=== PATIENT | female | born 1945 | race Caucasian/White ===

== ENCOUNTER → 2017-10-25 | Outpatient (CLI) | payer MEDICARE, BC | LOC: COL.PUL 12:32 | DX: R06.02 Shortness of breath (principal); R07.89 Other chest pain ==

== ENCOUNTER → 2018-04-21 | Outpatient (CLI) | payer MEDICARE, BC | LOC: MC.RAD 13:51 | DX: Z12.31 Encounter for screening mammogram for malignant neoplasm of breast (principal) ==

== ENCOUNTER 2018-09-11 09:59 | Outpatient (RCR) | payer MEDICARE, BC | END 2018-09-15 13:53 | disposition home or self-care (01) | LOC: MKS.ESL.PT 09:59 | DX: Z01.818 Encounter for other preprocedural examination (principal); M17.11 Unilateral primary osteoarthritis, right knee | CPT/HCPCS: G8978-GP; G8979-GP; G8980-GP ==

== ENCOUNTER → 2018-11-19 | Outpatient (CLI) | payer MEDICARE, BC | LOC: COL.PUL 12:56 | DX: R06.02 Shortness of breath (principal) | CPT/HCPCS: J7674 ==

== ENCOUNTER 2019-01-15 09:30 | Outpatient (RCR) | payer MEDICARE, BC | END 2019-01-15 13:55 | disposition home or self-care (01) | LOC: MKS.ESL.PT 09:30 | DX: Z47.1 Aftercare following joint replacement surgery (principal); Z96.651 Presence of right artificial knee joint ==

== ENCOUNTER 2019-02-26 02:47 | Emergency (ER) | payer MEDICARE, BC ==
[~2019-02-26] VITALS: Ht 170.2 cm; Wt 72.7 kg
[2019-02-26 02:49] VITALS: TEMP 96.9
[2019-02-26] MEDS ORDERED: OMEGA-3 1000 MG1 CAP PO (03:11)
[2019-02-26] MEDS ORDERED: BONE BUILDER (03:11)
[2019-02-26] MEDS ORDERED: VITAMIN D31000 IU PO (03:11)
[2019-02-26 03:16] LABS: BASO # 0.1 (0.0-0.2); BASO % 0.4 % (0.0-2.0); EOS # 0.1 (0.0-0.7); EOS % 0.7 % (0-4.0); GRAN % 82.3 % (42.2-75.2); HEMATOCRIT 44.1 % (37.0-47.0); HEMOGLOBIN 14.4 g/dl (12.5-16.0); LYMPH # 1.6 (1.2-3.4); LYMPH % 12.2 % (20.0-51.0); MEAN CELL VOLUME 92 fl (80.0-100.0); MEAN CORPUSCULAR HEMOGLOBIN 30 pg (27.0-31.0); MEAN CORPUSCULAR HGB CONC 33 g/dl (33.0-37.0); MEAN PLATELET VOLUME 9.5 fl (7.4-10.4); MONO # 0.5 (0.1-0.6); PLATELET COUNT 229 K/mm3 (130-400); RED BLOOD COUNT 4.81 M/mm3 (4.10-5.30); REDCELL DISTRIBUTION WIDTH-CV 13.1 % (11.5-14.5)
[2019-02-26 03:21] LABS: ALBUMIN 4.4 gm/dL (3.5-5.0); BILIRUBIN,TOTAL 0.5 mg/dL (0.0-1.0); CALCIUM 10.1 mg/dL (8.4-10.2); CREATININE, serum 1.19 (0.52-1.25); POTASSIUM 3.8 mmol/L (3.4-5.0); TOTAL PROTEIN 7.7 gm/dL (6.4-8.2)
[2019-02-26 03:46] LABS: COLLECTION METHOD CLEAN CATCH
[2019-02-26 03:53] LABS: PH 5 (5-8); SQUAMOUS EPITHELIAL None Seen /hpf; URINE APPEARANCE Clear; URINE BACTERIA None Seen /hpf; URINE BILIRUBIN Negative (NEGATIVE); URINE BLOOD 1+ (NEGATIVE); URINE COLOR Yellow; URINE GLUCOSE Negative (NEGATIVE); URINE KETONE Trace (NEGATIVE); URINE LEUKOCYTE ESTERASE Negative (NEGATIVE); URINE NITRATE Negative (NEGATIVE); URINE PROTEIN(semi-quant) Negative (NEGATIVE); URINE UROBILINOGEN Negative (NEGATIVE)
[2019-02-26] MEDS ORDERED: FLOMAX 0.40.4 MG/CAP PO (06:03)
[2019-02-26] MEDS ORDERED: ZOFRAN 4MG T4 MG/TAB PO (06:03)
[2019-02-26] MEDS ORDERED: NORCO 325 MG-51 TAB PO (06:03)
[2019-02-26 06:08] VITALS: BP 128/70; PULSE 83
[2019-02-27] VITALS (567 sets, daily range): O2SAT 83–100
[2019-02-27] MEDS ORDERED: MELAT3MGTAB PO (11:56)
[2019-02-28] VITALS (627 sets, daily range): O2SAT 73–100
== END 2019-02-26 06:15 | disposition home or self-care (01) ==
LOC: COL.ER 02:47
PROVIDERS: Emergency Medicine
DX: N20.2 Calculus of kidney with calculus of ureter (principal); N23 Unspecified renal colic
CPT/HCPCS: J0780; J1885; J2270; J2405; J7030; Q9967

== ENCOUNTER 2019-02-27 05:15 | Inpatient (IN) | payer MEDICARE, BC ==
[2019-02-27] VITALS (12 sets, daily range): BP systolic 94–123; BP diastolic 60–76; PULSE 76–97; TEMP 97.6–98.2
[~2019-02-27] VITALS: Ht 170.2 cm; Wt 80.8 kg
[~2019-02-27 05:15] MED LIST: BONE BUILDER; FLOMAX 0.40.4 MG/CAP PO; NORCO 325 MG-51 TAB PO; OMEGA-3 1000 MG1 CAP PO; VITAMIN D31000 IU PO; ZOFRAN 4MG T4 MG/TAB PO
[2019-02-27 05:50] LABS: MEAN CELL VOLUME 88 fl (80.0-100.0); MEAN CORPUSCULAR HGB CONC 34 g/dl (33.0-37.0); MEAN PLATELET VOLUME 9.7 fl (7.4-10.4); RED BLOOD COUNT 4.09 M/mm3 (4.10-5.30); REDCELL DISTRIBUTION WIDTH-CV 13.7 % (11.5-14.5)
[2019-02-27 05:55] LABS: HEMATOCRIT 35.9 % (37.0-47.0); HEMOGLOBIN 12.2 g/dl (12.5-16.0); MEAN CORPUSCULAR HEMOGLOBIN 30 pg (27.0-31.0); PLATELET COUNT 112 K/mm3 (130-400)
[2019-02-27 06:08] LABS: COLLECTION METHOD CLEAN CATCH
[2019-02-27 06:11] LABS: ALBUMIN 3.4 gm/dL (3.5-5.0); BILIRUBIN,TOTAL 0.9 mg/dL (0.0-1.0); CALCIUM 8.5 mg/dL (8.4-10.2); CREATININE, serum 1.84 (0.52-1.25); POTASSIUM 3.8 mmol/L (3.4-5.0); TOTAL PROTEIN 6.2 gm/dL (6.4-8.2)
[2019-02-27 06:12] LABS: INR 1.4 (0.8-3.0); PROTHROMBIN TIME 16.7 SECONDS (9.7-12.8)
[2019-02-27 06:15] LABS: URINE COLOR Yellow
[2019-02-27 06:15] LABS: PARTIAL THROMBOPLASTIN TIME 28.9 SECONDS (26.0-37.0)
[2019-02-27 06:16] LABS: PH 5 (5-8); URINE APPEARANCE Hazy; URINE BILIRUBIN Negative (NEGATIVE); URINE GLUCOSE Negative (NEGATIVE); URINE KETONE Negative (NEGATIVE); URINE PROTEIN(semi-quant) 2+ (NEGATIVE); URINE UROBILINOGEN Negative (NEGATIVE)
[2019-02-27 06:17] LABS: URINE BLOOD 3+ (NEGATIVE); URINE NITRATE Negative (NEGATIVE)
[2019-02-27 06:18] LABS: URINE LEUKOCYTE ESTERASE Trace (NEGATIVE)
[2019-02-27 06:24] LABS: BAND 46 % (0-10); LYMPHOCYTE 2 % (20.0-51.0); METAMYELOCYTE 1 % (0-0); NEUTROPHILS 51 % (42.0-75.2); PLATELET ESTIMATE DECREASED (NORMAL)
[2019-02-27 06:33] LABS: TROPONIN-I 2.2 ng/mL (0.000-0.035)
[2019-02-27] MEDS ORDERED: MELAT3MGTAB PO (11:56)
[2019-02-28] VITALS (7 sets, daily range): BP systolic 119–147; BP diastolic 59–83; PULSE 72–97; TEMP 98.2–99.2
[2019-02-28 05:17] LABS: HEMOGLOBIN 11.7 g/dl (12.5-16.0); MEAN CELL VOLUME 92 fl (80.0-100.0); MEAN CORPUSCULAR HEMOGLOBIN 30 pg (27.0-31.0); MEAN CORPUSCULAR HGB CONC 33 g/dl (33.0-37.0); MEAN PLATELET VOLUME 11.3 fl (7.4-10.4); PLATELET COUNT 74 K/mm3 (130-400); RED BLOOD COUNT 3.88 M/mm3 (4.10-5.30); REDCELL DISTRIBUTION WIDTH-CV 14.6 % (11.5-14.5)
[2019-02-28 05:21] LABS: HEMATOCRIT 35.7 % (37.0-47.0); INR 1.3 (0.8-3.0); PROTHROMBIN TIME 14.7 SECONDS (9.7-12.8)
[2019-02-28 05:29] LABS: BAND 49 % (0-10); HYPOCHROMIA 1+; LYMPHOCYTE 5 % (20.0-51.0); METAMYELOCYTE 1 % (0-0); NEUTROPHILS 45 % (42.0-75.2); PLATELET ESTIMATE DECREASED (NORMAL)
[2019-02-28 05:32] LABS: ALBUMIN 2.7 gm/dL (3.5-5.0); BILIRUBIN,TOTAL 0.5 mg/dL (0.0-1.0); CALCIUM 7.9 mg/dL (8.4-10.2); CREATININE, serum 1.22 (0.52-1.25); POTASSIUM 3.8 mmol/L (3.4-5.0); TOTAL PROTEIN 5.4 gm/dL (6.4-8.2)
[2019-03-01 03:26] VITALS: BP 144/75; PULSE 93; TEMP 98
[2019-03-01 06:21] LABS: HEMOGLOBIN 11.3 g/dl (12.5-16.0); INR 1.1 (0.8-3.0); MEAN CELL VOLUME 90 fl (80.0-100.0); MEAN CORPUSCULAR HEMOGLOBIN 30 pg (27.0-31.0); MEAN CORPUSCULAR HGB CONC 33 g/dl (33.0-37.0); PLATELET COUNT 96 K/mm3 (130-400); PROTHROMBIN TIME 12.5 SECONDS (9.7-12.8); RED BLOOD COUNT 3.76 M/mm3 (4.10-5.30)
[2019-03-01 06:23] LABS: HEMATOCRIT 33.8 % (37.0-47.0)
[2019-03-01 06:35] LABS: ALBUMIN 2.5 gm/dL (3.5-5.0); BILIRUBIN,TOTAL 0.9 mg/dL (0.0-1.0); CREATININE, serum 0.88 (0.52-1.25); POTASSIUM 3.6 mmol/L (3.4-5.0); TOTAL PROTEIN 5.1 gm/dL (6.4-8.2)
[2019-03-01 07:09] LABS: BAND 34 % (0-10); EOSINOPHIL 1 % (0-4); LYMPHOCYTE 10 % (20.0-51.0); NEUTROPHILS 54 % (42.0-75.2)
[2019-03-01 07:10] LABS: PLATELET ESTIMATE NORMAL (NORMAL)
[2019-03-01 07:28] VITALS: BP 136/62; PULSE 92; TEMP 98.1
[2019-03-01 11:53] VITALS: BP 146/80; PULSE 78; TEMP 97.9
[2019-03-01 16:26] VITALS: BP 133/66; PULSE 96; TEMP 98.1
[2019-03-01 20:16] VITALS: BP 133/56; PULSE 92; TEMP 98.3
[2019-03-01 23:03] VITALS: BP 147/75; PULSE 95; TEMP 98.7
[2019-03-02] VITALS (7 sets, daily range): BP systolic 131–155; BP diastolic 52–76; PULSE 79–90; TEMP 97.5–98.4
[2019-03-02 06:44] LABS: BASO # 0.1 (0.0-0.2); BASO % 0.7 % (0.0-2.0); EOS # 0.2 (0.0-0.7); EOS % 1.6 % (0-4.0); GRAN # 7.7 (1.4-6.5); GRAN % 75.5 % (42.2-75.2); HEMOGLOBIN 11.3 g/dl (12.5-16.0); LYMPH # 1.4 (1.2-3.4); MEAN CELL VOLUME 88 fl (80.0-100.0); MEAN CORPUSCULAR HEMOGLOBIN 30 pg (27.0-31.0); MEAN CORPUSCULAR HGB CONC 34 g/dl (33.0-37.0); MEAN PLATELET VOLUME 10.4 fl (7.4-10.4); MONO # 0.7 (0.1-0.6); MONO % 7.2 % (1.7-9.3); PLATELET COUNT 125 K/mm3 (130-400); RED BLOOD COUNT 3.83 M/mm3 (4.10-5.30); REDCELL DISTRIBUTION WIDTH-CV 13.9 % (11.5-14.5)
[2019-03-02 06:46] LABS: INR 1.1 (0.8-3.0); PROTHROMBIN TIME 12.3 SECONDS (9.7-12.8)
[2019-03-02 06:51] LABS: HEMATOCRIT 33.7 % (37.0-47.0)
[2019-03-02 06:52] LABS: ALBUMIN 2.8 gm/dL (3.5-5.0); BILIRUBIN,TOTAL 0.9 mg/dL (0.0-1.0); CALCIUM 8.4 mg/dL (8.4-10.2); CREATININE, serum 0.83 (0.52-1.25); POTASSIUM 3.1 mmol/L (3.4-5.0); TOTAL PROTEIN 5.5 gm/dL (6.4-8.2)
[2019-03-03 04:00] VITALS: BP 149/74; PULSE 85; TEMP 98.1
[2019-03-03 07:59] LABS: HEMOGLOBIN 12.1 g/dl (12.5-16.0); MEAN CELL VOLUME 89 fl (80.0-100.0); MEAN CORPUSCULAR HEMOGLOBIN 30 pg (27.0-31.0); MEAN CORPUSCULAR HGB CONC 34 g/dl (33.0-37.0); MEAN PLATELET VOLUME 10.2 fl (7.4-10.4); PLATELET COUNT 148 K/mm3 (130-400); RED BLOOD COUNT 4.08 M/mm3 (4.10-5.30); REDCELL DISTRIBUTION WIDTH-CV 13.9 % (11.5-14.5)
[2019-03-03 08:05] LABS: HEMATOCRIT 36.1 % (37.0-47.0)
[2019-03-03 08:14] LABS: ALBUMIN 3.1 gm/dL (3.5-5.0); CALCIUM 8.8 mg/dL (8.4-10.2); CREATININE, serum 0.85 (0.52-1.25); MAGNESIUM 1.7 mg/dL (1.6-2.3); POTASSIUM 3.6 mmol/L (3.4-5.0)
[2019-03-03 08:50] VITALS: BP 116/71; PULSE 96; TEMP 98.7
[2019-03-03] MEDS ORDERED: OMNICEF 300MG300 MG PO (09:26)
[2019-03-03] MEDS ORDERED: PROAIR HFA0.09 MG/AC IH (09:27)
[2019-03-03] MEDS ORDERED: ASPIRIN 81M81 MG/TA2 PO (09:32)
[2019-03-03 09:55] LABS: BAND 16 % (0-10); LYMPHOCYTE 20 % (20.0-51.0); METAMYELOCYTE 1 % (0-0); NEUTROPHILS 53 % (42.0-75.2); PLATELET ESTIMATE NORMAL (NORMAL)
== END 2019-03-03 11:28 | disposition home or self-care (01) | DRG 853 ==
LOC: COL.ER 05:15 → INPTSU 06:32 → ICU 11:05 → SURG 02-28 11:35
PROVIDERS: Emergency Medicine; Internal Medicine; ADMIT Urology
PROC: 0TC78ZZ Extirpation of Matter from Left Ureter, Via Natural or Artificial Opening Endoscopic (ICD-10-PCS; principal; 2019-02-27 07:00)
PROC: 0T7B8DZ Dilation of Bladder with Intraluminal Device, Via Natural or Artificial Opening Endoscopic (ICD-10-PCS; 2019-02-27 07:00)
DX: A41.9 Sepsis, unspecified organism (principal); R65.21 Severe sepsis with septic shock; I21.A1 Myocardial infarction type 2; N17.9 Acute kidney failure, unspecified; N20.1 Calculus of ureter; N12 Tubulo-interstitial nephritis, not specified as acute or chronic; J90 Pleural effusion, not elsewhere classified; S60.512A Abrasion of left hand, initial encounter; B96.20 Unspecified Escherichia coli [E. coli] as the cause of diseases classified elsewhere; W19.XXXA Unspecified fall, initial encounter; D69.6 Thrombocytopenia, unspecified; Z96.651 Presence of right artificial knee joint; R74.0 Nonspecific elevation of levels of transaminase and lactic acid dehydrogenase [LDH]; Y92.009 Unspecified place in unspecified non-institutional (private) residence as the place of occurrence of the external cause
CPT/HCPCS: 99232-AI; 99233-AI; 99239; A4216; A9284; C1769; C2617; J0690; J0696; J1100; J1650; J2310; J2370; J2405; J2543; J2704; J3010; J7030; J7040; J7042; J7120; Q9967

== ENCOUNTER 2019-03-13 05:41 | Day surgery (SDC) | payer MEDICARE, BC ==
[~2019-03-13] VITALS: Ht 170.2 cm; Wt 70.8 kg
[~2019-03-13 05:41] MED LIST changes: +ASPIRIN 81M81 MG/TA2 PO; +MELAT3MGTAB PO; +OMNICEF 300MG300 MG PO; +PROAIR HFA0.09 MG/AC IH
[2019-03-13 06:16] VITALS: BP 123/68; PULSE 73; TEMP 98.3
[2019-03-13] MEDS ORDERED: PROAIR HFA0.09 MG/AC IH (07:08)
[2019-03-13] MEDS ORDERED: ASPIRIN 81M81 MG/TA2 PO (07:09)
[2019-03-13] MEDS ORDERED: OMNICEF 300MG300 MG PO (07:11)
[2019-03-13] MEDS ORDERED: PROBIOTIC FORMU1 CAP PO (07:17)
[2019-03-13] MEDS ORDERED: [UNRECOGNIZED DRUG - OTHER] PO (07:19)
[2019-03-13 08:25] VITALS: BP 117/57; PULSE 70; TEMP 97.1
[2019-03-13 08:40] VITALS: BP 115/71; PULSE 71
[2019-03-13 08:55] VITALS: BP 135/59; PULSE 77
[2019-03-13 09:10] VITALS: BP 106/54; PULSE 70
--- NOTE | 2019-03-13 10:25 | NUR ---
0825- PT BACK FROM PACU, IS ALERT AND ORIENTATED, DENIES PAIN AND DENIES NAUSEA/VOMITING. IS PRESENT WITH HER. OFFERED HER SOMETHING TO EAT, STATED, 'TOAST WITH BUTTER AND ORANGE JUICE SOUNDS GOOD.' FOOD GIVEN TO HER. WILL CONT TO MONITOR HER PROGRESS
--- NOTE | 2019-03-13 10:31 | NUR ---
0840--PT ATE 2 PIECES OF TOAST WITH BUTTER AND DRINKING OJ. PT DENIES PAIN OR NAUSEA/VOMITING WITH EATING. PT SITTING UP, TAKING WITH , DENIES ANY NEEDS OR C/ AT THIS TIME. WILL CONT TO MONITOR
--- NOTE | 2019-03-13 10:36 | NUR ---
0855- PT UP TO VOID, WALKED WITH THIS NURSE TO THE BATHROOM WITHOUT DIFFICULTY. PT VOIDED WITHOUT DIFFICULTY, URINE WAS LT YELLOW WITH RED STINGE SPOT NOTED. PT DENIED PAIN OR BURNING. PT CONTINUES TO DENY PAIN OR NAUSEA OR VOMITING. GETTING DC PAPERS TOGETHER, WILL CON TO MONITOR PT
--- NOTE | 2019-03-13 10:41 | NUR ---
0910--PT UP AND DRESSED AND READY TO LEAVE. PRESENT. IV FLUIDS DC'D AND NEEDLE DISCONTINUED. PT TOLERATED WELL. PT CONTINUES TO DENY PAIN, DENIES N/V. TOOK PATIENT BY W/C OUT TO FAMILY VEHICLE.
--- NOTE | 2019-03-13 10:49 | NUR ---
0910-- PRINTED DC INSTRUCTIONS FOR PT RELATED TO CYSTOSCOPY AND GENERAL ANESTHESIA. READ THRU INSTRUCTION WITH PT AND DISMISSAL INSTRUCTIONS SIGNED, THIS NOTED WITH STANDING BY ERICKAN
== END 2019-03-13 09:30 | disposition home or self-care (01) ==
LOC: SDCO 05:41
DX: N20.1 Calculus of ureter (principal); Z79.82 Long term (current) use of aspirin; Z82.49 Family history of ischemic heart disease and other diseases of the circulatory system; Z96.651 Presence of right artificial knee joint
CPT/HCPCS: J0690; J2405; J2704; J3010; J7120

== ENCOUNTER → 2019-05-27 | Outpatient (CLI) | payer MEDICARE, BC ==
[~2019-05-27] MED LIST changes: +PROBIOTIC FORMU1 CAP PO; +[UNRECOGNIZED DRUG - OTHER] PO
== END ==
LOC: COL.RAD 08:46
DX: Z12.11 Encounter for screening for malignant neoplasm of colon (principal)

== ENCOUNTER → 2019-05-29 | Outpatient (CLI) | payer MEDICARE, BC | LOC: MC.RAD 13:45 | DX: Z12.31 Encounter for screening mammogram for malignant neoplasm of breast (principal) ==

== ENCOUNTER → 2020-05-31 | Outpatient (CLI) | payer MEDICARE, OTHER | LOC: MC.RAD 09:56 | DX: Z12.31 Encounter for screening mammogram for malignant neoplasm of breast (principal) ==

== ENCOUNTER → 2021-06-30 | Outpatient (CLI) | payer MEDICARE, OTHER | LOC: MC.RAD 10:36 | DX: Z12.31 Encounter for screening mammogram for malignant neoplasm of breast (principal) ==

== ENCOUNTER → 2023-10-25 | Outpatient (CLI) | payer MEDICARE | LOC: MC.RAD 09:30 | DX: Z12.31 Encounter for screening mammogram for malignant neoplasm of breast (principal) ==